=== PATIENT | female | born 1990 | race Caucasian/White ===

== ENCOUNTER 2020-07-16 15:42 | Outpatient (REF) | payer OTHER, SELFPAY | END 2020-07-16 15:43 | disposition home or self-care (01) | LOC: HO.LAB 15:42 | PROVIDERS: Visit Provider Internal Medicine | DX: Z20.828 Contact with and (suspected) exposure to other viral communicable diseases (principal) | CPT/HCPCS: 36415; C9803; U0003 ==

== ENCOUNTER 2020-11-25 09:34 | Outpatient (REF) | payer OTHER, SELFPAY ==
[2020-11-26 12:05] LABS: CT PCR NOT DETECTED (Not Detect.); NG PCR NOT DETECTED (Not Detect.)
== END 2020-11-25 09:35 | disposition home or self-care (01) ==
LOC: HO.LAB 09:34
PROVIDERS: PCP Internal Medicine; Visit Provider Advanced Practice Midwife
DX: Z01.419 Encounter for gynecological examination (general) (routine) without abnormal findings (principal); Z11.3 Encounter for screening for infections with a predominantly sexual mode of transmission; Z20.2 Contact with and (suspected) exposure to infections with a predominantly sexual mode of transmission
CPT/HCPCS: 87491; 87591

== ENCOUNTER 2021-06-09 08:43 | Outpatient (REF) | payer OTHER, SELFPAY | END 2021-06-09 08:44 | disposition home or self-care (01) | LOC: HO.LAB 08:43 | PROVIDERS: PCP Internal Medicine; Visit Provider Internal Medicine | DX: Z20.822 Contact with and (suspected) exposure to COVID-19 (principal) | CPT/HCPCS: C9803; U0003; U0005 ==

== ENCOUNTER 2021-06-12 19:11 | Emergency (ER) | payer OTHER, SELFPAY ==
[2021-06-12 19:49] VITALS: BP 128/77; PULSE 97; RESP 18; TEMP 36.4; O2SAT 98; BMI 29.5
--- NOTE | 2021-06-12 21:01 | ED.EAR ---
HPI - Ear Problem General Chief complaint: Ear Problems Stated complaint: left ear pain and rt eye drainage Time Seen by Provider: 06/12/21 21:00 Source: patient Mode of arrival: ambulatory Limitations: no limitations History of Present Illness MD Complaint: ear pain Location: bilateral Duration: constant Severity: moderate Relieving factors: nothing Exacerbating factors: nothing Context: recent illness (diagnosed with COVID today) Discharge from ear: no Associated symptoms ear: other (R eye is red too) Treatment prior to arrival: none Related Data Previous Rx's Medication Instructions Recorded norgestimate-ethinyl estradiol 1 tab PO DAILY #28 tab 11/25/20 0.18 mg/0.215mg/0.25mg-35 mcg(28)tablet erythromycin 5 mg/gram (0.5 %) eye 1 appl OPHTHALMIC (EYE) BID 7 Days 06/12/21 ointment #3.5 g evcmlgff-yeydvubjs-shnhtomou 3.5 4 drp OTIC (EARS) Q8H 7 Days #10 ml 06/12/21 mg/mL-10,000 unit/mL-1 % ear solution Allergies Allergy/AdvReac Type Severity Reaction Status Date / Time morphine [MORPHINE] AdvReac Intermediate VOMITING Verified 11/25/20 09:45 Review of Systems Review of Systems: Constitutional : no Fever, no Chills, no fatigue, no Malaise ENT/Mouth : no sore throat, no runny nose, pos ear pain Eyes: No Discharge Cardiovascular : No Chest Pain, No SOB Respiratory : No Cough, No Sputum Gastrointestinal : No Nausea, No Vomiting, No Diarrhea Genitourinary : No Dysuria, No Urinary Frequency Musculoskeletal : no Myalgia Skin : No rash Neuro : No Headache PMFSH Past Medical History Attestation statement: The following information was validated with the patient. Medical History Hypothyroid Family History Family History Paternal Aunt Cervical cancer Social History Social History (Updated 06/12/21 @ 21:17 by Olivia Tolentino DO) Alcohol intake: never Patient Tobacco Use Status: Never used Tobacco Advance Directives: No Advance Directives Information Provided: Yes Sexual orientation: Straight/Heterosexual Gender identity: Female Physical Exam Vital Signs: Vital Signs: Last Vital Signs Temp 97.6 F 06/12/21 19:49 Pulse 97 06/12/21 19:49 Resp 18 06/12/21 19:49 BP 128/77 06/12/21 19:49 Pulse Ox 98 06/12/21 19:49 BMI result Body Mass Index 29.5 Appearance: Alert. Oriented X3. No acute distress. Eyes: Pupils equal, round and reactive to light. R eye mild injection in sclera no discharge noted ENT: Pharynx normal. TMs normal bilateral canals mild erythema no discharge Neck: Normal inspection. Neck supple. CVS: Normal heart rate and rhythm. Pulses normal. Respiratory: No respiratory distress. Breath sounds normal. Abdomen: Soft and non-tender. Skin: Skin warm and dry. Normal skin color. Normal skin turgor. Extremities: No lower extremity edema. Neuro: Oriented X 3. No motor deficit. No sensory deficit. MDM - Ear MDM Narrative Medical decision making narrative: 30 yo female with no PMH here with + COVID test R eye is injected but no discharge noted has mild bilateral otitis externa no resp complaints given precautions to return - stable for DC Discharge Plan Discharge Clinical Impression: COVID-19 Otitis externa Qualifiers: Otitis externa type: unspecified type Chronicity: acute Laterality: bilateral Qualified Code(s): H60.503 - Unspecified acute noninfective otitis externa, bilateral Patient Disposition: Home, Self-Care Instructions: Otitis Externa (ED), COVID-19 (Coronavirus Disease 2019) (ED) Additional Instructions: return to ED for any worsening symptoms or concerns wear a mask, quarantine, protect others if you are so short of breath you cannot walk to your bathroom that is not normal Prescriptions: New erythromycin 5 mg/gram (0.5 %) ointment 1 appl ophthalmic (eye) BID 7 Days Qty: 3.5 RF: 0 pjcoytvj-ikqpnnnex-TR 3.5-10,000-1 mg/mL-unit/mL-% solution 4 drp otic (ears) Q8H 7 Days Qty: 10 RF: 0 No Action norgestimate-ethinyl estradiol 0.18/0.215/0.25 mg-35 mcg (28) tablet 1 tab PO DAILY Qty: 28 RF: 11
--- NOTE | 2021-06-12 21:07 | PC.NURSE ---
at bedside for primary eval.
== END 2021-06-12 21:37 | disposition home or self-care (01) ==
PROVIDERS: Emergency Provider Emergency Medicine; PCP Internal Medicine
DX: U07.1 COVID-19 (principal); H60.503 Unspecified acute noninfective otitis externa, bilateral
CPT/HCPCS: 99283

== ENCOUNTER 2021-10-27 11:19 | Emergency (ER) | payer OTHER, SELFPAY ==
[2021-10-27 11:43] VITALS: BP 128/78; PULSE 64; RESP 16; TEMP 36.7; O2SAT 99; BMI 29.8
--- NOTE | 2021-10-27 13:45 | ED_ITS ---
HPI - Headache General Chief Complaint: Headache Stated Complaint: Migraine/earache Time Seen by Provider: 10/27/21 13:43 Source: patient Mode of arrival: ambulatory Limitations: no limitations History of Present Illness HPI Narrative: 30-year-old female came in for evaluation of left-sided facial pain. Left-sided temporal headache feel like throbbing for 1 week, pain is radiating toward the left ear and left jaw, patient has no history of migraines in the past, no fever, no chills. Related Data Previous Rx's Medication Instructions Recorded erythromycin 5 mg/gram (0.5 %) eye 1 appl OPHTHALMIC (EYE) BID 7 Days 06/12/21 ointment #3.5 g txoexwuw-lwrgwbigg-lhqvtgcyp 3.5 4 drp OTIC (EARS) Q8H 7 Days #10 ml 06/12/21 mg/mL-10,000 unit/mL-1 % ear solution norgestimate-ethinyl estradiol 1 tab PO DAILY #28 tab 09/29/21 0.18 mg/0.215mg/0.25mg-35 mcg(28)tablet amoxicillin 875 mg-potassium 1 tab PO BID #14 tab 10/27/21 clavulanate 125 mg tablet Allergies Allergy/AdvReac Type Severity Reaction Status Date / Time morphine [MORPHINE] AdvReac Intermediate VOMITING Verified 11/25/20 09:45 Review of Systems Review of Systems: All other systems are reviewed and are negative Constitutional: Reports as per HPI and Reports no additional constitutional complaints Eyes: Reports as per HPI and Reports no additional eye complaints Reports system reviewed and no additional complaints, except as documented Cardiovascular: Reports as per HPI and Reports no additional cardiovascular complaints Respiratory: Reports as per HPI and Reports no additional respiratory complaints Gastrointestinal: Reports as per HPI and Reports no additional gastrointestinal complaints Genitourinary: Reports no additional female genitourinary complaints Musculoskeletal: Reports no additional musculoskeletal complaints Skin/Breast: Reports system reviewed and no additional complaints, except as docu Psychiatric: Reports no additional psychiatric complaints Endocrine: Reports no additional endocrine complaints Hematologic/Lymphatic: Reports no additional hematologic/lymphatic complaints Allergic/Immunologic: Reports no additional allergic/immunologic complaints Reports system reviewed and no additional complaints, except as documented and Reports Abnormal speech present PMFSH Past Medical History Medical History Hypothyroid Family History Family History Paternal Aunt Cervical cancer Social History Social History Alcohol intake: never Patient Tobacco Use Status: Never used Tobacco Advance Directives: No Advance Directives Information Provided: No Patient : No Sexual orientation: Straight/Heterosexual Gender identity: Female Physical Exam Vital Signs: Vital Signs: Last Vital Signs Temp 98.1 F 10/27/21 11:43 Pulse 64 10/27/21 11:43 Resp 16 10/27/21 11:43 BP 128/78 10/27/21 11:43 Pulse Ox 99 10/27/21 11:43 BMI result Body Mass Index 29.8 Vital signs have been reviewed as appeared to be correct. Blood pressure normal. Heart rate normal. Respiration rate normal. Temperature normal. Oxygen saturation normal. Appearance: Alert. Oriented X3. No acute distress. Head: Normal external exam. Normocephalic. Atraumatic. No Goyal signs noted. No raccoon eyes noted Eyes: PERRLA. EOMI. Conjunctiva and sclera normal. Eyelids normal. ENT: TM's Normal. Pharynx normal. Uvula midline. Moist mucous membranes. Tenderness with percussion over left frontal/left maxillary sinuses. No left TMJ tenderness or pain. Neck: Normal inspection. Neck supple. FROM. No adenopathy. Thyroid Normal. No me ningeal signs. No neck mass noted. CVS: Normal heart rate and rhythm. Heart sound normal. No murmurs noted. Pulses normal throughout. Respiratory: No respiratory distress. Painless inspiration. Breath sounds normal. No wheezes/rales/rhonchi noted. Chest nontender. No accessory muscle usage noted or decreased air movement noted. Abdomen: Soft and nontender. Bowel sounds normal in all 4 quadrants. No distention noted. No organomegaly noted. No visible injury noted. Back: No CVA tenderness. Full range of motion noted. Skin: Skin warm and dry. Normal skin color. Normal skin turgor. No ra shes/lesions/lacerations noted. Extremities: No lower extremity edema. Extremities exhibit normal range of motion. Extremities nontender. Neuro: Oriented X 3. Cranial nerve exam: II-XII are grossly intact No motor deficit. No sensory deficit. Reflexes normal. Course Course Course Narrative: Assessment and plan. 30-year-old female came in with left facial pain/headache. Physical exam is consistent with acute sinusitis of left frontal/left maxillary sinus, patient has unremarkable wbc's/sed rate/CRP, no blurry vision, no fever, no chills. Treat the patient for acute sinusitis with Augmentin. MDM - Headache Lab Data Attestation: I reviewed the patient's lab results. Result diagrams: 10/27/21 13:54 Labs: Lab Results 10/27/21 10/27/21 10/27/21 Range/Units 13:54 13:54 13:54 WBC 7.1 (4.8-10.8) X10*3/uL RBC 4.84 (4.20-5.50) X10*6/uL Hgb 14.2 (12.0-16.0) g/dl Hct 42.7 (37.0-47.0) % MCV 88.2 (80.0-98.0) fL MCH 29.3 (27.0-33.0) pg MCHC 33.3 (31.0-35.0) g/dl RDW 11.9 (11.0-16.0) % Plt Count 329 (160-400) X10*3/uL MPV 9.3 L (9.4-12.3) fL Immature Gran % (Auto) 0.3 (0.0-0.4) % Neut % (Auto) 52.6 (45-73) % Lymph % (Auto) 40.4 H (20-40) % [place] % (Auto) 5.9 (2-11) % Eos % (Auto) 0.4 (0-4) % Baso % (Auto) 0.4 (0-2) % Lymph # (Auto) 2.9 (1.2-4.9) X10*3/uL [place] # (Auto) 0.4 (0.1-1.2) X10*3/uL Eos # (Auto) 0.0 (0.0-0.4) X10*3/uL Baso # (Auto) 0.0 (0.0-0.2) X10*3/uL Abs Immat Gran (auto) 0.02 (0.00-0.03) X10*3/uL Absolute Neuts (auto) 3.7 (2.0-8.3) x10*3/uL Absolute Nucleated RBC 0.000 (0.0-0.012) X10*3/uL Nucleated RBC % (auto) 0.0 (0.0-0.2) /100WBC ESR 7 (0-20) MM/HR C-Reactive Protein 0.35 (< or = 0.50) mg/dL Discharge Plan Discharge Clinical Impression: Sinusitis Patient Disposition: Home, Self-Care Instructions: Sinusitis (ED) Prescriptions: New amoxicillin-pot clavulanate 875-125 mg tablet 1 tab PO BID Qty: 14 0RF No Action norgestimate-ethinyl estradiol 0.18/0.215/0.25 mg-35 mcg (28) tablet 1 tab PO DAILY Qty: 28 0RF erythromycin 5 mg/gram (0.5 %) ointment 1 appl ophthalmic (eye) BID 7 Days Qty: 3.5 0RF qrzivxjz-xfgwbjeri-AG 3.5-10,000-1 mg/mL-unit/mL-% solution 4 drp otic (ears) Q8H 7 Days Qty: 10 0RF Referrals: Sophie Mccollum MD [Primary Care Provider] -
[2021-10-27] MEDS: Amoxicillin/Potassium Clav 875 MG TABLET PO (13:48)
[2021-10-27] MEDS: Ibuprofen 400 MG TABLET PO (13:48)
[2021-10-27 13:59] LABS: MANUAL DIFF FLAG NO
[2021-10-27 14:02] LABS: Basophils Percent Auto 0.4 % (0-2); Eosinophils Percent Auto 0.4 % (0-4); Hematocrit 42.7 % (37.0-47.0); Hemoglobin 14.2 g/dl (12.0-16.0); Imm Gran Abs Auto 0.02 X10*3/uL (0.00-0.03); Imm Gran Pct Auto 0.3 % (0.0-0.4); Lymphocytes Absolute Auto 2.9 X10*3/uL (1.2-4.9); Lymphocytes Percent Auto 40.4 % (20-40); Mean Corpuscular HGB Conc 33.3 g/dl (31.0-35.0); Mean Corpuscular Hemoglobin 29.3 pg (27.0-33.0); Mean Corpuscular Volume 88.2 fL (80.0-98.0); Mean Platelet Volume 9.3 fL (9.4-12.3); Monocytes Absolute Auto 0.4 X10*3/uL (0.1-1.2); Monocytes Percent Auto 5.9 % (2-11); Neutrophils Absolute Auto 3.7 x10*3/uL (2.0-8.3); Neutrophils Percent Auto 52.6 % (45-73); Platelet Count 329 X10*3/uL (160-400); Red Blood Count 4.84 X10*6/uL (4.20-5.50); Red Cell Distribution Width 11.9 % (11.0-16.0); White Blood Count 7.1 X10*3/uL (4.8-10.8)
[2021-10-27 14:12] LABS: C Reactive Protein 0.35 mg/dL (< or = 0.50)
[2021-10-27 14:48] LABS: Erythrocyte Sedimentation Rate 7 MM/HR (0-20)
== END 2021-10-27 16:11 | disposition home or self-care (01) ==
PROVIDERS: Emergency Provider Emergency Medicine; PCP Internal Medicine
DX: J32.9 Chronic sinusitis, unspecified (principal); G43.909 Migraine, unspecified, not intractable, without status migrainosus; Z79.899 Other long term (current) drug therapy
CPT/HCPCS: 36415; 85025; 85652; 86140; 99283

== ENCOUNTER 2021-11-27 09:24 | Outpatient (REF) | payer OTHER, SELFPAY ==
[2021-11-27 11:59] LABS: TSH reflex Free T4 0.62 uIU/mL (0.32-4.0)
[2021-11-27 18:13] LABS: CT PCR NOT DETECTED (Not Detect.); NG PCR NOT DETECTED (Not Detect.)
[2021-12-02 01:53] LABS: HPV mRNA E6/E7 rflx Not Detected (Not Detected)
== END 2021-11-27 09:25 | disposition home or self-care (01) ==
LOC: HO.LAB 09:24
PROVIDERS: PCP Internal Medicine; Visit Provider Advanced Practice Midwife
DX: Z01.419 Encounter for gynecological examination (general) (routine) without abnormal findings (principal); Z11.51 Encounter for screening for human papillomavirus (HPV); Z20.2 Contact with and (suspected) exposure to infections with a predominantly sexual mode of transmission; N89.8 Other specified noninflammatory disorders of vagina; E03.9 Hypothyroidism, unspecified
CPT/HCPCS: 36415; 84443; 87491; 87591; 87624; 88142

== ENCOUNTER 2022-01-11 07:41 | Emergency (ER) | payer OTHER, SELFPAY ==
[2022-01-11 07:43] VITALS: BP 115/64; PULSE 84; RESP 18; TEMP 36.4; O2SAT 99; BMI 30.2
--- NOTE | 2022-01-11 09:47 | ED_ITS ---
HPI - General Adult General Chief complaint: Allergic Reaction Stated complaint: eye swelling possible allergic reaction Time Seen by Provider: 01/11/22 09:47 Source: patient Mode of arrival: ambulatory Limitations: no limitations History of Present Illness HPI narrative: Patient is a 31 year old female presenting to the emergency department today with eye lid swelling. Patient states that she keeps randomly getting eye lid swelling and she is concerned that she is allergic to the sun. Patient states that this has happened 1 other time and they gave her prednisone. Patient states that she does not have any rash or other symptoms anywhere else. Patient denies any dizziness, lightheadedness, abdominal pain, nausea, vomiting, fever, chills, blurry vision, double vision, loss of vision, chest pain, difficulty breathing, shortness of breath, back pain, night sweats, pain with urination, increased urinary frequency, increased urinary urgency, blood in her urine or stool, syncope or a near syncopal episode, recent trauma or falls, bowel incontinence, bladder incontinence, bowel retention, bladder retention, or any other complaints at this time. Onset (ago): day(s) (2) Location: eyes Radiation: non-radiation Severity: mild Severity scale (1-10): 1 Relieving factors: none Exacerbating factors: none Associated symptoms: denies other symptoms Treatments prior to arrival: none Related Data Previous Rx's Medication Instructions Recorded norgestimate-ethinyl estradiol 1 tab PO DAILY #28 tabs 11/27/21 0.18 mg/0.215mg/0.25mg-35 mcg(28)tablet prednisone 20 mg tablet 20 mg PO DAILY 12 days #26 tabs 01/11/22 Allergies Allergy/AdvReac Type Severity Reaction Status Date / Time morphine [MORPHINE] AdvReac Intermediate VOMITING Verified 11/27/21 09:31 Review of Systems Constitutional: Constitutional: Reports no additional constitutional complaints, Denies chills, Denies fever(s) and Denies night sweats Eyes: Eyes: Reports no additional eye complaints, Denies blurry vision, Denies change in vision, Denies diplopia, Denies eye discharge, Denies loss of vision and Denies eye pain Comments: eyelid swelling ENT: Denies dizziness Cardiovascular: Cardiovascular: Reports no additional cardiovascular complaints, Denies chest pain, Denies lightheadedness, Denies Loss of Consciousness and Denies dyspnea Respiratory: Respiratory: Reports no additional respiratory complaints and Denies dyspnea Gastrointestinal: Gastrointestinal: Reports no additional gastrointestinal complaints, Denies abdominal pain, Denies melena, Denies hematochezia, Denies change in bowel habits and Denies change in stool character Genitourinary: Genitourinary: Denies hematuria, Denies urinary frequency, Denies dysuria, Denies urinary incontinence, Denies urinary hesitancy and Denies urinary urgency Musculoskeletal: Musculoskeletal: Reports no additional musculoskeletal complaints, Denies numbness and Denies tingling Neurologic: Denies dizziness, Denies loss of vision, Denies numbness and Denies tingling Psychiatric: Psychiatric: Reports no additional psychiatric complaints Endocrine: Endocrine: Reports no additional endocrine complaints Hematologic/Lymphatic: Hematologic/Lymphatic: Reports no additional hematologic/lymphatic complaints Allergic/Immunologic: Allergic/Immunologic: Reports no additional allergic/immunologic complaints PMFSH Past Medical History Attestation statement: The following information was validated with the patient. Source: old records reviewed Medical History Hypothyroid Family History Family History Paternal Aunt Cervical cancer Social History Social History Alcohol intake: never Patient Tobacco Use Status: Never used Tobacco Advance Directives: No Advance Directives Information Provided: Yes Sexual orientation: Straight/Heterosexual Gender identity: Female Physical Exam ED Vital Signs: Vital Signs - 24 hr 01/11/22 07:43 Temperature 97.6 F Pulse Rate 84 Respiratory Rate 18 Blood Pressure 115/64 Pulse Oximetry 99 Oxygen Delivery Method Room Air BMI result Body Mass Index 30.2 Const General: cooperative, no acute distress, alert and awake Nutritional Appearance: well nourished Orientation/consciousness: patient oriented x3 Limitations: no limitations HENMT Head: Yes normal to inspection and Yes atraumatic Ears: hearing grossly normal bilaterally and external ears normal General nose exam: Normal external nose present, no nasal discharge noted and no epistaxis Face and sinus: Yes normal facial exam, No abrasion and No laceration Mouth: Normal oral and palatal mucosa present, no drooling and no muffled voice Eyes Other: very minimal swelling to the upper and lower lids, no erythema or warmth Conjunctivae: conjunctivae normal Pupils: Equal, round and reactive pupils present EOM: EOMs intact bilaterally Neck Neck: Yes normal visual inspection, Yes full ROM and Yes no lymphadenopathy Chest Chest palpation & inspection: normal inspection of the chest Resp Effort & Inspection: normal respiratory effort and able to speak in complete sentences Auscultation: clear to auscultation bilaterally Cardio Rate: regular rate Rhythm: regular rhythm GI Inspection: Yes normal to inspection Neuro General: patient oriented x3 and moves all extremities Cranial nerves: Yes Equal, round and reactive pupils present Cognition (Neuro): normal cognition Motor exam (neuro): 5/5 motor strength present throughout Sensory Exam: Normal double simultaneous stimulation for sensation Coordination: [id number] test normal Extrem General: Yes normal to inspection, Yes full ROM and Yes capillary refill normal Psych Appearance: grossly normal Mental Status: mental status grossly normal Affect: normal affect Attitude: cooperative Thought process: Normal thought process present Thought content: Normal thought content present Insight: Good insight present (Psych) Medical Decision Making MDM Narrative Medical decision making narrative: Patient is a 31 year old female presenting to the emergency department today with eye lid swelling. Patient's physical exam showed very minimal swelling to the upper and lower lids, consistent with an allergic type reaction. Patient's airway was intact, no wheezing or stridor. Patient denied any other symptoms. No rashes present. I explained my physical exam findings as well as all test results to the patient. I answered all questions asked by the patient. I stressed the importance of the patient taking her medication as prescribed. I stressed the importance of the patient following up with her primary care provider and an hse advisor. I stressed the importance of the patient returning to the emergency department immediately if her symptoms were to worsen or if she were to develop any dizziness, shortness of breath, difficulty breathing, chest pain, blurry vision, loss of vision, nausea, vomiting, abdominal pain, fever, chills, back pain, or any other complaints. Patient verbalized agreement and understanding with this treatment plan and discharge. Differential Diagnosis Differential Diagnosis: Allergies Medical Records Medical records reviewed: Yes I reviewed the patient's medical records. Discharge Plan Discharge Clinical Impression: Allergic conjunctivitis Patient Disposition: Home, Self-Care Instructions: Allergies (ED) Additional Instructions: Follow up with your primary care provider and an hse advisor. Return to the emergency department immediately if your symptoms worsen or if you develop any dizziness, shortness of breath, difficulty breathing, chest pain, blurry vision, loss of vision, nausea, vomiting, abdominal pain, fever, chills, back pain, or any other complaints. Prescriptions: New prednisone 20 mg tablet 20 mg PO DAILY 12 Days Qty: 26 0RF Rx Instructions: Take 3 tablets for 5 days THEN; Take 2 tablets for 4 days THEN; Take 1 tablet for 3 days No Action norgestimate-ethinyl estradiol 0.18/0.215/0.25 mg-35 mcg (28) tablet 1 tab PO DAILY Qty: 28 11RF Referrals: Sophie Mccollum MD [Primary Care Provider] - Sascha Rojas MD [Physician] - Lazaro Eid DO [Physician] - Print Language: Kosovan
== END 2022-01-11 10:20 | disposition home or self-care (01) ==
PROVIDERS: Emergency Provider Emergency Medicine Emergency Medical Services; PCP Internal Medicine
DX: H10.13 Acute atopic conjunctivitis, bilateral (principal)
CPT/HCPCS: 99283